=== PATIENT | female | born 1995 | race Caucasian/White ===

== ENCOUNTER 2024-04-17 21:40 | Emergency (ER) | payer OTHER ==
[~2024-04-17] VITALS: Ht 167.6 cm; Wt 39.5 kg
[2024-04-17 21:58] VITALS: BP 123/84; PULSE 115; RESP 20; TEMP 97.8; O2SAT 99
[2024-04-17 22:38] LABS: APPEARANCE,URINE CLEAR (CLEAR); BILIRUBIN,URINE NEGATIVE (NEGATIVE); BLOOD, URINE 3+ (NEGATIVE); COLOR,URINE YELLOW (YELLOW); LEUKOCYTE ESTERASE ,URINE NEGATIVE (NEGATIVE); NITRITE, URINE NEGATIVE (NEGATIVE); PROTEIN,URINE NEGATIVE (NEGATIVE); UGLUCOSE NEGATIVE (NEGATIVE); UROBILINOGEN,URINE 0.2 EU/dL (0.2 - 1)
[2024-04-17 22:40] LABS: BACTERIA,URINE 10-30 (MOD) /HPF (None Seen); MUCUS,URINE 1+ /LPF (None Seen); RBC,URINE 0-5 /HPF (0-5); SQUAMOUS EPITHELIAL CELL,UR 0-3 (FEW) /LPF (0-3 (FEW)); WBC,URINE 0-5 /HPF (0-5)
[2024-04-18] MEDS ORDERED: CEPH-588 PO (01:04)
[2024-04-18] MEDS ORDERED: BEN10 PO (01:04)
[2024-04-18] MEDS: ACETAMINOPHEN EXTRA STRENGTH 500 MG TAB PO ONE (01:13)
[2024-04-18 01:19] VITALS: BP 99/74; PULSE 87; RESP 18; TEMP 97.8; O2SAT 95
== END 2024-04-18 01:19 | disposition home or self-care (01) ==
LOC: MED 21:40
DX: N39.0 Urinary tract infection, site not specified (principal); G62.9 Polyneuropathy, unspecified; M79.10 Myalgia, unspecified site; K80.20 Calculus of gallbladder without cholecystitis without obstruction; Z79.1 Long term (current) use of non-steroidal anti-inflammatories (NSAID); Z91.013 Allergy to seafood
CPT/HCPCS: 81001; 81025; 87086; 99283